=== PATIENT | male | born 1990 | race Caucasian/White ===

== ENCOUNTER 2019-06-09 07:21 | Emergency (ER) | payer OTHER ==
[~2019-06-09] VITALS: Ht 193 cm; Wt 93.0 kg
[2019-06-09] MEDS ORDERED: KETOROLAC 30MG/ML VIAL IM ONE (08:30)
[2019-06-09] MEDS ORDERED: HYDROCODONE/ACETAMINOPHEN 5/325MG TABLET PO ONE (09:00)
[2019-06-09 09:36] VITALS: BP 125/84
== END 2019-06-09 09:37 | disposition home or self-care (01) ==
LOC: ER 07:50
DX: M54.5 Low back pain (principal); Z91.041 Radiographic dye allergy status
CPT/HCPCS: 96372; 99283; J1885